=== PATIENT | male | born 1955 | race Caucasian/White ===

== ENCOUNTER 2018-07-28 22:05 | Emergency (ER) | payer SELFPAY ==
[~2018-07-28] VITALS: Ht 177.8 cm; Wt 70.0 kg
[2018-07-28 23:48] LABS: HEMATOCRIT 34.1 % (42.0-52.0); HEMOGLOBIN 11.2 g/dL (14.0-18.0); MEAN CORPUSCULAR HEMOGLOBIN 26.7 pg (28.0-32.0); MEAN CORPUSCULAR VOLUME 81.1 fL (80.0-94.0); PLATELET 229 x1000/uL (130-400); RED CELL DISTRIBUTION WIDTH 15.3 % (11.6-14.6)
[2018-07-29 00:24] VITALS: BP 112/67
== END 2018-07-29 00:27 | disposition home or self-care (01) ==
LOC: ER 23:10
DX: K64.8 Other hemorrhoids (principal); R42 Dizziness and giddiness; Z88.9 Allergy status to unspecified drugs, medicaments and biological substances; Z98.890 Other specified postprocedural states
CPT/HCPCS: 36415; 85027; 99283; Z7610